=== PATIENT | male | born 1990 ===

== ENCOUNTER 2023-10-02 18:53 | Emergency (ER) | payer OTHER ==
[~2023-10-02] VITALS: Ht 185.4 cm; Wt 79.4 kg
[2023-10-02 20:51] LABS: HEMATOCRIT 46.6 % (39.0-48.0); MEAN CELL VOLUME 92.8 fL (80.0-100.00); MEAN CORPUSCULAR HEMOGLOBIN 31.8 pg (27.00-32.0); MEAN CORPUSCULAR HGB CONC 34.3 g/dl (32.0-36.0); PLATELET COUNT 202 K/uL (150-450); RED BLOOD COUNT 5.02 M/uL (4.00-6.00); RED CELL DISTRIBUTION WIDTH 13.1 % (11.5-14.5)
== END 2023-10-02 22:35 | disposition home or self-care (01) ==
LOC: ER 18:54
PROVIDERS: General Practice
DX: J45.909 Unspecified asthma, uncomplicated (principal); R53.81 Other malaise; Z20.822 Contact with and (suspected) exposure to COVID-19; Z91.013 Allergy to seafood